=== PATIENT | male | born 1980 | race Two or more races ===

== ENCOUNTER 2017-01-12 09:50 | Emergency (ER) | payer OTHER, BC ==
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
[2017-01-12 14:01] VITALS: BP 134/78
== END 2017-01-12 14:01 | disposition home or self-care (01) ==
LOC: ER 09:50
DX: M54.5 Low back pain (principal); R03.0 Elevated blood-pressure reading, without diagnosis of hypertension; M54.9 Dorsalgia, unspecified; F17.210 Nicotine dependence, cigarettes, uncomplicated; V87.7XXA Person injured in collision between other specified motor vehicles (traffic), initial encounter
CPT/HCPCS: 99283